=== PATIENT | male | born 1955 | race Two or more races ===

== ENCOUNTER 2024-06-10 02:09 | Emergency (ER) | payer OTHER ==
[~2024-06-10] VITALS: Ht 172.7 cm; Wt 70.3 kg
[2024-06-10 02:22] VITALS: BP 154/83; O2SAT 97
[2024-06-10] MEDS ORDERED: GLUMETZA1000 MG (02:22)
[2024-06-10] MEDS ORDERED: IRBESARTAN300 MG (02:22)
[2024-06-10] MEDS ORDERED: TETANUS & DIPHTHERIA TOX,ADULT 0.5 ML VIAL IM STA (02:49)
[2024-06-10] MEDS ORDERED: TETANUS DIPHTHERIA TOX. ADSOR 5 ML VIAL IM ONE (02:53)
[2024-06-10] MEDS ORDERED: MUPIROCIN1 G1 TOP (04:52)
== END 2024-06-10 05:02 ==
LOC: ER 02:11
DX: S00.83XA Contusion of other part of head, initial encounter (principal); W19.XXXA Unspecified fall, initial encounter; Y93.89 Activity, other specified; Y92.018 Other place in single-family (private) house as the place of occurrence of the external cause; Y99.9 Unspecified external cause status; E11.9 Type 2 diabetes mellitus without complications; Z79.84 Long term (current) use of oral hypoglycemic drugs; I10 Essential (primary) hypertension
CPT/HCPCS: 70450; 90471; 90714; 99283; J1670

== ENCOUNTER 2024-06-19 09:35 | Outpatient (CLI) | payer OTHER ==
[~2024-06-19 09:35] MED LIST: GLUMETZA1000 MG; IRBESARTAN300 MG; MUPIROCIN1 G1 TOP
== END 2024-06-19 09:36 | disposition home or self-care (01) ==
LOC: NUCLEAR 09:35
PROVIDERS: ATTEND Internal Medicine
DX: I10 Essential (primary) hypertension (principal); Z86.73 Personal history of transient ischemic attack (TIA), and cerebral infarction without residual deficits

== ENCOUNTER 2024-06-19 13:07 | Outpatient (CLI) | payer OTHER | END 2024-06-19 13:12 | disposition home or self-care (01) | LOC: MRI 13:07 | PROVIDERS: ATTEND Internal Medicine | DX: Z86.73 Personal history of transient ischemic attack (TIA), and cerebral infarction without residual deficits (principal) | CPT/HCPCS: 70551 ==